=== PATIENT | female | born 1970 | race African-American/Black ===

== ENCOUNTER 2016-10-01 21:21 | Emergency (ER) | payer MEDICARE, OTHER ==
[~2016-10-01] VITALS: Ht 167.6 cm; Wt 108.9 kg
[~2016-10-01 21:21] MED LIST: IBUPROFEN600 MG ORAL; NORCO 10-325 T1 EACH ORAL; NORCO 5-325 TA1 EAC1 ORAL; OCUFLOX5 ML OP
[2016-10-01] MEDS ORDERED: HYDROmorphone 1mg/ml Carpuject IVP ONE ×2 (21:30→23:00)
[2016-10-01 21:41] LABS: BASOPHILS % (AUTO) 0.6 % (0.0-2.0); EOSINOPHILS % (AUTO) 4.1 % (0.0-3.0); LYMPHOCYTES % (AUTO) 35.1 % (20.0-45.0); MEAN CORPUSCULAR HEMOGLOBIN 27.8 PG (27.0-31.0); MEAN CORPUSCULAR HGB CONC 31.4 G/DL (32.0-36.0); MEAN CORPUSCULAR VOLUME 89 FL (80-99); MEAN PLATELET VOLUME 7.2 FL (6.5-10.1); MONOCYTES % (AUTO) 4.7 % (1.0-10.0); NEUTROPHILS % (AUTO) 55.4 % (45.0-75.0); PLATELET COUNT 322 K/UL (150-450); RED BLOOD COUNT 4.48 M/UL (4.20-5.40); RED CELL DISTRIBUTION WIDTH 14.5 % (11.6-14.8)
[2016-10-01 21:50] LABS: PROTHROMBIN TIME 10.7 SEC (9.30-11.50)
[2016-10-01 21:57] LABS: ANION GAP 14 (5-15); CALCIUM 9.6 mg/dL (8.6-10.2); CARBON DIOXIDE 24 mEQ/L (20-30); CHLORIDE 101 mEQ/L (98-107); CREATININE 0.6 mg/dL (0.5-0.9); GLOMERULAR FILTRATION RATE > 60 mL/min (>60); HEMOLYSIS 0; POTASSIUM 3.5 mEQ/L (3.4-4.9); SODIUM 139 mEQ/L (135-145)
[2016-10-01] MEDS ORDERED: ACETAMINOPHEN325 M1 ORAL (22:06)
[2016-10-01] MEDS ORDERED: BISACODYL10 M1 RC (22:06)
[2016-10-01] MEDS ORDERED: LOVENOX40 MG/0.4 SUBQ (22:06)
[2016-10-01] MEDS ORDERED: HYDROCODON-ACE1 EA13 ORAL (22:06)
[2016-10-01] MEDS ORDERED: SENNA8.6 M2 PO (22:06)
[2016-10-01] MEDS ORDERED: NORCO 10/3251 EA ORAL (22:06)
[2016-10-01] MEDS ORDERED: DOCUSATE SODIU100 M2 ORAL (22:06)
[2016-10-01] MEDS ORDERED: RESTORIL15 MG ORAL (22:06)
[2016-10-01] MEDS ORDERED: ZOFRAN4 M1 ORAL (22:06)
[2016-10-01 22:30] VITALS: BP 104/63
[2016-10-01 23:00] VITALS: BP 104/63
[2016-10-01] MEDS ORDERED: Morphine Sulfate 2mg/ml Inj IVP PRN (23:15)
[2016-10-01] MEDS ORDERED: Morphine Sulfate 4mg/ml Inj IVP PRN (23:15)
[2016-10-01] MEDS ORDERED: Acetaminophen 650 MG SUPP RECTAL PRN ×2 (23:15)
[2016-10-01] MEDS ORDERED: HYDROmorphone 1mg/ml Carpuject IVP PRN (23:30)
[2016-10-01 23:48] VITALS: BP 93/68
[2016-10-02] MEDS ORDERED: 1/2NS w/KCl 20mEq 1000ml 1,000 ML IV SCH (00:14)
[2016-10-02] MEDS ORDERED: HYDROmorphone 1mg/ml Carpuject IVP ONE ×2 (00:15→02:15)
[2016-10-02] MEDS ORDERED: Enoxaparin 40mg Inj SUBQ SCH (00:15)
[2016-10-02 01:01] VITALS: BP 109/65
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
[2016-10-02 02:40] VITALS: BP 120/64
[2016-10-02] MEDS ORDERED: Docusate 100mg cap ORAL SCH (09:00)
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
--- NOTE | 2016-10-02 13:43 | Diagnostic Imaging Report ---
Indications: Fall, chest pain Technique: Portable AP chest Findings: Comparison: 10/15/2015 Cardiac silhouette remains normal in size. Pulmonary vasculature remains within normal limits. Inspiratory effort has improved. Lungs and pleura remain clear. No fracture identified. No abnormal mediastinal widening.. IMPRESSION: No evidence of acute injury or other acute cardiopulmonary disease, unchanged
== END 2016-10-02 02:40 | disposition short-term general hospital (02) ==
LOC: EDBD 21:21 → EDBEDREQ 22:17 → EMR 22:45 → EDBEDREQ 23:05 → 3E 23:07 → EDBEDREQ 23:07 → UNDOADMIN 23:07 → EDBEDREQ 23:09 → EMR 10-02 02:40
DX: S72.042A Displaced fracture of base of neck of left femur, initial encounter for closed fracture (principal); W19.XXXA Unspecified fall, initial encounter; Y92.129 Unspecified place in nursing home as the place of occurrence of the external cause
CPT/HCPCS: 36415; 71010; 73502; 73552; 80048; 85025; 85610; 85730; 87081; 93005; 96374; 96375; 99285; J1170; J2405

== ENCOUNTER 2017-08-28 01:11 | Emergency (ER) | payer MEDICARE, OTHER ==
[~2017-08-28] VITALS: Ht 170.2 cm; Wt 127.0 kg
[~2017-08-28 01:11] MED LIST changes: +ACETAMINOPHEN325 M1 ORAL; +BISACODYL10 M1 RC; +DOCUSATE SODIU100 M2 ORAL; +HYDROCODON-ACE1 EA13 ORAL; +LOVENOX40 MG/0.4 SUBQ; +NORCO 10/3251 EA ORAL; +RESTORIL15 MG ORAL; +SENNA8.6 M2 PO; +ZOFRAN4 M1 ORAL
--- NOTE | 2017-08-28 01:21 | Emergency Room Report ---
History of Present Illness General Chief Complaint: Abdominal Pain Source: Patient Present Illness HPI 47-year-old female with no medical problems except other than chronic pain in her left leg, ambulates with a walker at baseline and takes daily norco, presents with an episode of epigastric tightness type pain that occurred while she was eating shrimp she felt like it didn't go all the way down, it causes severe pain for a moment, and then it resolved. She is able to belch and feel much better. She reports no vomiting, normal bowel habits, says she did feel nauseated at the time, and she thought she may be about to . But she is completely better now without any interventions other than the belching but wanted to get checked out and requested EMS bring her in. So, EMS was called, she felt better and they left, but then she changed her mind and wanted to be seen again, so they responded a second time and was brought in and has been asymptomatic since her initial episode. Currently she has no complaints at all and reports it only lasted a few moments and she thinks she may just gotten the shrimp stuck in her esophagus. Allergies: Coded Allergies: No Known Allergies (Unverified , 08/28/17) Patient History Past Medical History: see triage record Last Menstrual Period: unk Reviewed Nursing Documentation: PMH: Agreed; PSxH: Agreed Nursing Documentation-PMH Past Medical History: No History, Except For History Of Psychiatric Problem: Yes Review of Systems All Other Systems: negative except mentioned in HPI Physical Exam Vital Signs Date Time Temp Pulse Resp B/P (MAP) Pulse Ox O2 Delivery O2 Flow Rate FiO2 08/28/17 01:08 97.7 72 16 150/100 99 Room Air 97.7 Sp02 EP Interpretation: reviewed, normal General Appearance: no apparent distress, alert, non-toxic Head: normocephalic Eyes: bilateral eye normal inspection, bilateral eye PERRL, bilateral eye EOMI ENT: normal ENT inspection, hearing grossly normal, normal pharynx, no angioedema, normal voice, moist mucus membranes Neck: normal inspection, full range of motion, supple, supple/symm/no masses Respiratory: chest non-tender, lungs clear, normal breath sounds, chest symmetrical, palpation of chest normal Cardiovascular #1: normal peripheral pulses, regular rate, rhythm Cardiovascular #2: 2+ radial (R), 2+ radial (L), 2+ dorsalis pedis (R), 2+ dorsalis pedis (L) Gastrointestinal: normal inspection, non tender, soft, no mass, no guarding, no rebound Rectal: deferred Genitourinary: normal inspection, no CVA tenderness Musculoskeletal: back normal, gait/station normal, normal range of motion - Except left knee, which has some chronic limitation, but normal external appearance and nontender, non-tender, no calf tenderness Neurologic: alert, responsive, registered route associate III-XII nml as tested, motor strength/tone normal, sensory intact, speech normal Psychiatric: judgement/insight normal, memory normal, mood/affect normal, no suicidal/homicidal ideation Skin: normal color, no rash, warm/dry, normal turgor Lymphatic: no adenopathy Medical Decision Making Diagnostic Impression: Primary Impression: Gastritis ER Course Patient with likely episode of gastritis versus possible esophageal spasm after having a large food bolus slowly transit through the distal esophagus. Basic workup obtained, patient with no acute symptoms, given GI medications as well as Ativan if she became intermittently agitated when we requested she be moved from the EMS gurney to the ED bed. I do not suspect any acute medical illness requiring any further intervention or investigation, she has remained stable be discharged. all wnl, including cardiac biomarkers EKG Diagnostic Results EKG Time: 01:25 EP Interpretation: no st-t changes, no twi's, no stemi Rate: normal Rhythm: NSR ST Segments: no acute changes ASA given to the pt in ED: No Rhythm Strip Diag. Results Rhythm Strip Time: 01:21 EP Interpretation: yes Rate: 88 Rhythm: NSR, no PVC's, no ectopy Chest X-Ray Diagnostic Results Chest X-Ray Diagnostic Results : Chest X-Ray Ordered: Yes # of Views/Limited/Complete: 1 View Indication: Chest Pain EP Interpretation: Yes Interpretation: no consolidation, no effusion, no pneumothorax, no acute cardiopulmonary disease Impression: No acute disease Electronically Signed by: Nina Slade MD Reevaluation Time: 01:42 Last Vital Signs Date Time Temp Pulse Resp B/P (MAP) Pulse Ox O2 Delivery O2 Flow Rate FiO2 08/28/17 01:08 97.7 72 16 150/100 99 Room Air 97.7 Status: improved Reevaluation Impression Patient still with no pain, no SOB, no complaints, joking and laughing in the room Disposition: HOME, SELF-CARE Condition: Stable NINA SLADE M.D Aug 28, 2017 01:21
[2017-08-28] MEDS ORDERED: LORazepam 1mg tab ORAL ONE (01:30)
[2017-08-28] MEDS ORDERED: Norco 5mg/325mg tab ORAL ONE (01:45)
[2017-08-28 01:56] VITALS: BP 118/80
[2017-08-28 01:57] LABS: BASOPHILS % (AUTO) 0.6 % (0.0-2.0); EOSINOPHILS % (AUTO) 1.6 % (0.0-3.0); HEMATOCRIT 40.1 % (37.0-47.0); HEMOGLOBIN 12.5 G/DL (12.0-16.0); MEAN CORPUSCULAR VOLUME 81 FL (80-99); MONOCYTES % (AUTO) 3.8 % (1.0-10.0); PLATELET COUNT 294 K/UL (150-450); RED BLOOD COUNT 4.94 M/UL (4.20-5.40); RED CELL DISTRIBUTION WIDTH 15.4 % (11.6-14.8); WHITE BLOOD COUNT 8.3 K/UL (4.8-10.8)
[2017-08-28 02:04] LABS: ANION GAP 10 mmol/L (5-15); BLOOD UREA NITROGEN 18 mg/dL (7-18); CALCIUM 8.7 MG/DL (8.5-10.1); CARBON DIOXIDE 23 MMOL/L (21-32); CHLORIDE 104 MMOL/L (98-107); POTASSIUM 4.3 MMOL/L (3.5-5.1); SODIUM 137 MMOL/L (136-145)
[2017-08-28 02:17] LABS: ALANINE AMINOTRANSFERASE 31 U/L (12-78); ALBUMIN 3.7 G/DL (3.4-5.0); ALBUMIN/GLOBULIN RATIO 0.8 (1.0-2.7); ALKALINE PHOSPHATASE 105 U/L (46-116); ASPARTATE AMINO TRANSFERASE 30 U/L (15-37); BILIRUBIN,TOTAL 0.2 MG/DL (0.2-1.0); CKMB < 0.5 NG/ML (0.0-3.6); CREATINE KINASE 58 U/L (26-308)
[2017-08-28] MEDS ORDERED: RANITIDINE HCL150 MG ORAL (02:34)
[2017-08-28 03:12] VITALS: BP 108/62
[2017-08-28 04:03] VITALS: BP 121/76
[2017-08-28 04:20] VITALS: BP 121/76
--- NOTE | 2017-08-28 09:43 | Diagnostic Imaging Report ---
Indication: Shortness of breath Technique: One view of the chest Comparison: 10/01/2016 Findings: Lungs and pleural spaces are clear. Heart size is normal Impression: No acute process
--- NOTE | 2017-08-28 14:57 | Cardiology Report ---
APPROVED REPORT EKG Measurement Heart [id number] NE 150P50 [id number] Sinus rhythm with premature atrial complexes with aberrant conduction Nonspecific T wave abnormality Abnormal ECG
== END 2017-08-28 04:20 | disposition home or self-care (01) ==
LOC: EDBD 01:11 → EMR 01:21
DX: K29.70 Gastritis, unspecified, without bleeding (principal); M79.605 Pain in left leg; G89.29 Other chronic pain
CPT/HCPCS: 36415; 71045; 80053; 82550; 82553; 83690; 84484; 85025; 93005; 99283

== ENCOUNTER 2018-09-01 11:56 | Emergency (ER) | payer MEDICARE, OTHER ==
[~2018-09-01] VITALS: Ht 170.2 cm; Wt 122.5 kg
[~2018-09-01 11:56] MED LIST changes: +RANITIDINE HCL150 MG ORAL
--- NOTE | 2018-09-01 12:30 | NUR ---
ED Nurse Note:pt. came with left eye discomfort since july, no drainage reported, eye axam was done
[2018-09-01 12:38] VITALS: BP 112/76
--- NOTE | 2018-09-01 12:39 | Emergency Room Report ---
History of Present Illness General Chief Complaint: Eye Problems Source: Patient Present Illness HPI 48-year-old female with no significant past medical history here complaining of over 1 month of foreign body sensation left eye. Patient reports that she was ironing when the ironing board hit the back of her head and must of scratched her eye or something flew in her eye since mid July 2018. Patient denies eye pain, discharge, feels like something is moving up and down the corner of her left eye. Denies blurry vision, curtain like vision, reduced central or peripheral vision. Denies any injury to the eye, recent URI symptoms, photophobia, headache and dizziness. Denies chest pain, shortness of breath, palpitation, and all other associated symptoms. Patient has not made an appointment with her retail services professional yet and reports that she has been washing her iron daily basis. Allergies: Coded Allergies: No Known Allergies (Unverified , 08/28/17) Patient History Past Medical History: see triage record Past Surgical History: unable to obtain Pertinent Family History: none Social History: Reports: smoking Now: No Immunizations: UTD Reviewed Nursing Documentation: PMH: Agreed; PSxH: Agreed Nursing Documentation-PMH Past Medical History: No History, Except For Review of Systems All Other Systems: negative except mentioned in HPI Physical Exam Vital Signs Date Time Temp Pulse Resp B/P (MAP) Pulse Ox O2 Delivery O2 Flow Rate FiO2 09/01/18 12:11 98.2 88 18 109/75 (86) 94 Room Air Sp02 EP Interpretation: reviewed General Appearance: normal inspection, well appearing, no apparent distress, alert Head: normocephalic, atraumatic Eyes: left eye other - lateral corneal abrasion; bilateral eye PERRL ENT: normal ENT inspection, hearing grossly normal, normal pharynx, no angioedema Neck: normal inspection, full range of motion, supple, thyroid normal Respiratory: normal inspection, chest non-tender, lungs clear, no respiratory distress, no wheezing Cardiovascular #1: normal inspection, regular rate, rhythm, no gallop, normal capillary refill Gastrointestinal: normal inspection, non tender, soft Musculoskeletal: normal inspection, back normal, digits/nails normal Neurologic: normal inspection, alert, oriented x3, responsive Psychiatric: normal inspection, judgement/insight normal, memory normal Skin: normal inspection, normal color, no rash, warm/dry Lymphatic: normal inspection, no adenopathy Medical Decision Making PA Attestation All my diagnosis and treatment plans were reviewed ad discussed with my supervising physician Dr. Guevara Diagnostic Impression: Primary Impression: Corneal abrasion, left ER Course 48-year-old female with no significant past medical history here complaining of over 1 month of foreign body sensation left eye. Patient reports that she was ironing when the ironing board hit the back of her head and must of scratched her eye or something flew in her eye since mid July 2018. Patient denies eye pain, discharge, feels like something is moving up and down the corner of her left eye. Denies blurry vision, curtain like vision, reduced central or peripheral vision. Denies any injury to the eye, recent URI symptoms, photophobia, headache and dizziness. Denies chest pain, shortness of breath, palpitation, and all other associated symptoms. Patient has not made an appointment with her retail services professional yet and reports that she has been washing her iron daily basis. Ddx considered but are not limited to: bacterial conjunctivitis, allergic conjunctivitis, viral conjunctivitis, periorbital cellulitis, global trauma , corneal abrasion, macular denengeration, glaucoma Vital signs: are WNL, pt. is afebrile H&PE are most consistent with: Corneal abrasion ORDERS: Ofloxacin eyedrops ED INTERVENTIONS: woodlamp , tetracaine and fluorescein strips were used to visualize left eye DISCHARGE: At this time pt. is stable for d/c to home. Will provide printed patient care instructions, and any necessary prescriptions. Care plan and follow up instructions have been discussed with the patient prior to discharge. Patient to follow-up with an retail services professional for the back of the thigh to rule out other possibilities of foreign body sensation. She reports that she has not been to an retail services professional in over 2 years Last Vital Signs Date Time Temp Pulse Resp B/P (MAP) Pulse Ox O2 Delivery O2 Flow Rate FiO2 09/01/18 12:11 98.2 88 18 109/75 (86) 94 Room Air Disposition: HOME, SELF-CARE Condition: Stable Scripts Ofloxacin (Ofloxacin) 5 Ml Drops 2 DROP OP Q4HR for 7 Days, #10 ML Prov: Ellen Galvin 09/01/18 Referrals: Justin Le MD Patient Instructions: Corneal Abrasion, [id number] Additional Instructions: Follow-up with an retail services professional for further evaluation to rule out possibility of cataract versus macular degeneration versus other abnormalities of the eye. Wear protective sunglasses avoid wearing eye make-up Ellen Galvin Sep 01, 2018 12:39
[2018-09-01] MEDS ORDERED: OFLOXACIN10 ML OP (12:42)
--- NOTE | 2018-09-01 12:49 | NUR ---
ED Nurse Note: PT SITTING PEACEFULLY IN WHEELCHAIR IN NAD. AOX4. PRESCRIPTION AND DISCHARGE PAPERWORK EXPLAINED TO PT. PT VERBALIZES UNDERSTANDING AND ALL QUESTIONS ANSWERED. PRESCRIPTION AND DISCHARGE PAPERWORK GIVEN TO PT AND ID WRISTBAND REMOVED. PT WHEELCHAIRED OUT OF ER INDEPENDENTLY WITH STEADY GAIT AND ALL BELONGINGS.
[2018-09-01 12:50] VITALS: BP 116/78
== END 2018-09-01 12:51 | disposition home or self-care (01) ==
LOC: EMR 12:46
DX: S05.02XA Injury of conjunctiva and corneal abrasion without foreign body, left eye, initial encounter (principal); X58.XXXA Exposure to other specified factors, initial encounter; Y92.9 Unspecified place or not applicable; F17.200 Nicotine dependence, unspecified, uncomplicated
CPT/HCPCS: 99282

== ENCOUNTER 2019-01-17 14:39 | Emergency (ER) | payer MEDICARE, OTHER ==
[~2019-01-17] VITALS: Ht 172.7 cm; Wt 81.6 kg
[~2019-01-17 14:39] MED LIST changes: +OFLOXACIN10 ML OP
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
[2019-01-17] MEDS ORDERED: IBU800 MG PO (15:07)
[2019-01-17] MEDS ORDERED: ROBAXIN-500MG ORAL (15:07)
[2019-01-17 15:30] VITALS: BP 110/75
--- NOTE | 2019-01-17 15:30 | NUR ---
Patient was evaluated, treated and discharged with aftercare instructions by MD/PA
== END 2019-01-17 15:30 | disposition home or self-care (01) ==
LOC: EMR 15:16
DX: G89.29 Other chronic pain (principal); M25.562 Pain in left knee
CPT/HCPCS: 99282